=== PATIENT | male | born 1980 | race Caucasian/White ===

== ENCOUNTER 2018-01-08 15:53 | Inpatient (IN) | payer OTHER ==
[2018-01-08 17:55] VITALS: BMI 34.7
--- NOTE | 2018-01-08 22:02 | HP ---
CIWA Score - CIWA Score Nausea/Vomitin Muscle Tremors: 2 Anxiety: 3 Agitation: 2 Paroxysmal Sweats: 2 Orientation: 0-Oriented Tacttile Disturbances: 2-Mild Itch/Numbness/Burn Auditory Disturbances: 2-Mild Harshness/Frighten Visual Disturbances: 2-Mild Sensitivity Headache: 2-Mild CIWA-Ar Total Score: 20 Admission ROS BHS - HPI Chief Complaint: DEPENDENT ON ETOH, COCAINE AND MARIJUANA Allergies/Adverse Reactions: Allergies Allergy/AdvReac Type Severity Reaction Status Date / Time No Known Allergies Allergy Verified 01/08/18 21:17 History of Present Illness: THE PT. IS REQUESTING ADMISSION TO THE DETOX UNIT AND CAME FOR H AND PE Exam Limitations: No Limitations - Ebola screening Have you traveled outside of the country in the last 21 days: No (N) Have you had contact with anyone from an Ebola affected area: No Have you been sick,other than usual withdrawal symptoms: No Do you have a fever: No - Review of Systems Constitutional: See HPI, Malaise, Weakness EENT: reports: See HPI Respiratory: reports: See HPI Cardiac: reports: Syncope GI: reports: See HPI, Nausea, Abdominal cramping : reports: No Symptoms Reported, See HPI Musculoskeletal: reports: See HPI, Muscle Pain, Muscle Weakness Integumentary: reports: See HPI, Flushing, Sweating Neuro: reports: See HPI, Headache, Tremors, Weakness Endocrine: reports: See HPI Hematology: reports: See HPI Psychiatric: reports: Judgement Intact, Orientated x3, Anxious, Depressed Patient History - Patient Medical History Hx Asthma: No Hx Chronic Obstructive Pulmonary Disease (COPD): No Hx Cardiac Disorders: No Hx Hypertension: Yes Hx Seizures: No Hx Diabetes: No Hx Gastrointestinal Disorders: Yes (ACID REFLUX) Hx Genitourinary Disorders: No Hx Sexually Transmitted Disorders: No Hx Renal Disease (ESRD): No Hx Human Immunodeficiency Virus (HIV): No Hx Hepatitis C: No Hx Depression: Yes (AND ANXIETY) Hx Suicide Attempt: Yes (X 1 - LAST NIGHT) Other Medical History: OBESITY - Patient Surgical History Past Surgical History: Yes Hx Orthopedic Surgery: Yes (RIGHT KNEE INJURY 01/2015) Anesthesia Reaction: No - PPD History Previous Implant?: Yes Documented Results: Negative w/o proof - Smoking Cessation Smoking history: Former smoker Have you smoked in the past 12 months: Yes Hx Chewing Tobacco Use: No Initiated information on smoking cessation: No 'Breaking Loose' booklet given: 01/08/18 - Substance & Tx. History Hx Alcohol Use: No Hx Substance Use: Yes Substance Use Type: Alcohol, Cocaine, Marijuana Hx Substance Use Treatment: No - Substances Abused Alcohol Route: Oral Frequency: Daily Amount used: BEER 1 OF 12 PACK, WHISKEY 8 OZ Age of first use: 14 Date of Last Use: 01/08/18 Marijuana/Hashish Route: Smoking Frequency: Daily Amount used: 1 GRAM Age of first use: 14 Date of Last Use: 01/07/18 Cocaine Route: Inhalation Frequency: 1-2 times per week Amount used: 1 GRAM Age of first use: 14 Date of Last Use: 01/07/18 Family Disease History - Family Disease History Family Disease History: Other: Brother (X 2 - ETOH DEPENDENTS) Admission Physical Exam S - Vital Signs Vital Signs: Vital Signs - 24 hr 01/08/18 17:53 Temperature 97.9 F Pulse Rate 84 Respiratory 18 Rate Blood Pressure 145/96 - Physical General Appearance: Yes: No Apparent Distress, Nourished, Appropriately Dressed , Obese, Tremorous, Sweating, Anxious HEENTM: Yes: Hearing grossly Normal, Normocephalic, Normal Voice, YOGESH, Pharynx Normal Respiratory: Yes: Chest Non-Tender, Lungs Clear, Normal Breath Sounds, No Respiratory Distress, No Accessory Muscle Use Neck: Yes: No masses,lesions,Nodules, Supple, Trachea in good position Breast: Yes: Axillae without masses Cardiology: Yes: Regular Rhythm, S1, S2, Tachycardia Abdominal: Yes: Normal Bowel Sounds, Non Tender, Soft, Protuberent, Distended Back: Yes: Normal Inspection Musculoskeletal: Yes: full range of Motion, Gait Steady, Pelvis Stable, Muscle Pain, Muscle weakness Extremities: Yes: Normal Capillary Refill, Normal Range of Motion, Non-Tender, Tremors Neurological: Yes: lumber planer II-XII NML intact, Fully Oriented, Alert, Motor Strength 5/5, Normal Response, Depressed Affect Integumentary: Yes: Warm, Moist Lymphatic: Yes: Within Normal Limits - Diagnostic (1) EtOH dependence Current Visit: Yes Status: Chronic Qualifiers: Substance use status: uncomplicated Qualified Code(s): F10.20 - Alcohol dependence, uncomplicated (2) Cocaine dependence Current Visit: Yes Status: Chronic (3) Marijuana dependence Current Visit: Yes Status: Chronic (4) Obese Current Visit: Yes Status: Chronic Qualifiers: Obesity classification: unspecified obesity classification (5) Anxiety and depression Current Visit: Yes Status: Chronic (6) HTN (hypertension) Current Visit: Yes Status: Acute (7) GERD (gastroesophageal reflux disease) Current Visit: Yes Status: Acute Cleared for Admission S - Detox or Rehab [facility] Level of Care: Medically Managed Detox Regimen/Protocol: Librium S Breath Alcohol Content Breath Alcohol Content: 0 Urine Drug Screen - Results Drug Screen Negative: No Urine Drug Screen Results: THC-Marijuana, TOMAS-Cocaine, BZO-Benzodiazepines
[2018-01-08] MEDS ORDERED: MENTHOL/PHENOL 1 EACH UD MM PRN (22:14)
[2018-01-08] MEDS ORDERED: LOPERAMIDE HCL 2 MG CAPSULE PO PRN (22:14)
[2018-01-08] MEDS ORDERED: ACETAMINOPHEN 325 MG TABLET (FP) PO PRN (22:14)
[2018-01-08] MEDS ORDERED: P-EPHED 60MG/TRIPROLIDI 2.5MG TABLET PO PRN (22:14)
[2018-01-08] MEDS ORDERED: MAGNESIUM CITRATE 300 ML BOTTLE PO PRN (22:14)
[2018-01-08] MEDS ORDERED: MAG HYDROX/AL HYDROX/SIMETH 30 ML UNIT-DOSE CUP PO PRN (22:14)
[2018-01-08] MEDS ORDERED: guaiFENesin/D-METHORPHAN HB 10 ML UNIT-DOSE CUPS PO PRN (22:14)
[2018-01-08] MEDS ORDERED: MAGNESIUM HYDROX 2400MG/30ML ORAL SUSPENSION 30 ML CUP PO PRN (22:14)
[2018-01-08] MEDS ORDERED: chlordiazePOXIDE HCL 25 MG CAPSULE PO PRN (22:14)
[2018-01-08] MEDS: chlordiazePOXIDE HCL 25 MG CAPSULE PO SCH (22:42)
[2018-01-08] MEDS: MELATONIN 5 MG TABLETS PO PRN (22:44)
[2018-01-09] MEDS: chlordiazePOXIDE HCL 25 MG CAPSULE PO SCH ×4 (05:30→22:27)
[2018-01-09] MEDS: PRENATAL VITAMINS W/ FOLIC ACID TABLET (FP) PO SCH (10:13)
[2018-01-09 10:30] LABS: HEMATOCRIT 42.3 % (35.4-49); HEMOGLOBIN 14.2 GM/dL (11.7-16.9); MCH 31.1 pg (25.7-33.7); MCHC 33.7 g/dl (32.0-35.9); MEAN CELL VOLUME 92.3 fl (80-96); MEAN PLT VOLUME 8.9 fl (7.5-11.1); PLATELET COUNT 181 K/MM3 (134-434); RBC 4.58 M/mm3 (4.00-5.60); RDW 13.7 % (11.9-15.9); WHITE BLOOD COUNT 4.6 K/mm3 (4.0-10.0)
[2018-01-09 10:39] LABS: ALBUMIN 3.5 g/dl (3.4-5.0); ANION GAP 7 (8-16); BLOOD UREA NITROGEN 24 mg/dL (7-18); CALCIUM 8.3 mg/dL (8.5-10.1); CHLORIDE 106 mmol/L (98-107); CO2 28 mmol/L (21-32); GLUCOSE,RANDOM 107 mg/dL (74-106); POTASSIUM 3.8 mmol/L (3.5-5.1); SODIUM 141 mmol/L (136-145)
[2018-01-09 10:43] LABS: ALK PHOS 88 U/L (45-117); BILIRUBIN,TOTAL 0.8 mg/dL (0.2-1.0); CREATININE 0.9 mg/dL (0.7-1.3); SGOT/AST 24 U/L (15-37); SGPT/ALT 50 U/L (12-78); TOT PROT 6.5 g/dl (6.4-8.2)
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
[2018-01-09 11:35] LABS: URINE APPEARANCE TURBID; URINE BILIRUBIN NEGATIVE (<2.0 mg/dL); URINE COLOR YELLOW; URINE GLUCOSE (UA) NEGATIVE (NEGATIVE); URINE KETONE TRACE (NEGATIVE); URINE LEUK ESTERASE NEGATIVE (NEGATIVE); URINE NITRITE NEGATIVE (NEGATIVE); URINE PROTEIN NEGATIVE (NEGATIVE); URINE UROBILINOGEN NEGATIVE mg/dL (0.2-1.0)
--- NOTE | 2018-01-09 16:52 | PN ---
S CIWA - CIWA Score Nausea/Vomitin Muscle Tremors: 4-Moderate,w/Arms Extend Anxiety: 3 Agitation: 3 Paroxysmal Sweats: 3 Orientation: 0-Oriented Tacttile Disturbances: 1-Very Mild Itch/Numbness Auditory Disturbances: 0-None Visual Disturbances: 0-None Headache: 1-Very Mild CIWA-Ar Total Score: 18 BHS Progress Note (SOAP) Subjective: Sweating, anxious, nausea Objective: 01/09/18 16:50 Last Vital Signs Temp Pulse Resp BP Pulse Ox 96.7 F L 84 18 121/83 01/09/18 13:34 01/09/18 13:34 01/09/18 13:34 01/09/18 13:34 Laboratory Tests 01/09/18 01/09/18 01/09/18 08:00 08:00 08:00 WBC 4.6 RBC 4.58 Hgb 14.2 Hct 42.3 MCV 92.3 MCH 31.1 MCHC 33.7 RDW 13.7 Plt Count 181 MPV 8.9 Sodium 141 Potassium 3.8 Chloride 106 Carbon Dioxide 28 Anion Gap 7 L BUN 24 H Creatinine 0.9 Creat Clearance w eGFR > 60 Random Glucose 107 H Calcium 8.3 L Total Bilirubin 0.8 AST 24 ALT 50 Alkaline Phosphatase 88 Total Protein 6.5 Albumin 3.5 Urine Color Urine Appearance Urine pH Ur Specific [place] Urine Protein Urine Glucose (UA) Urine Ketones Urine Blood Urine Nitrite Urine Bilirubin Urine Urobilinogen Ur Leukocyte Esterase RPR Titer HIV 1&2 Antibody Screen Negative HIV P24 Antigen Negative 01/09/18 01/09/18 08:00 09:20 WBC RBC Hgb Hct MCV MCH MCHC RDW Plt Count MPV Sodium Potassium Chloride Carbon Dioxide Anion Gap BUN Creatinine Creat Clearance w eGFR Random Glucose Calcium Total Bilirubin AST ALT Alkaline Phosphatase Total Protein Albumin Urine Color Yellow Urine Appearance Turbid Urine pH 5.0 Ur Specific [place] 1.024 Urine Protein Negative Urine Glucose (UA) Negative Urine Ketones Trace H Urine Blood Negative Urine Nitrite Negative Urine Bilirubin Negative Urine Urobilinogen Negative Ur Leukocyte Esterase Negative RPR Titer Nonreactive HIV 1&2 Antibody Screen HIV P24 Antigen Labs reviewed: bun 24 Assessment: 01/09/18 16:51 Withdrawal symptoms Noted with azotemia Plan: Continue detox Azotemia: encouraged PO hydration (water)
[2018-01-09] MEDS: hydrOXYzine PAMOATE 50 MG CAPSULE (FP) PO PRN (22:27)
[2018-01-09] MEDS: THIAMINE HCL 100 MG TABLET (FP) PO SCH (22:27)
[2018-01-09] MEDS: MELATONIN 5 MG TABLETS PO PRN (22:28)
[2018-01-10] MEDS: chlordiazePOXIDE HCL 25 MG CAPSULE PO SCH ×3 (05:34→16:45)
[2018-01-10] MEDS: PRENATAL VITAMINS W/ FOLIC ACID TABLET (FP) PO SCH (10:09)
--- NOTE | 2018-01-10 11:49 | PN ---
[facility] CIWA - CIWA Score Nausea/Vomitin-No Nausea/No Vomiting Muscle Tremors: 4-Moderate,w/Arms Extend Anxiety: 4-Mod. Anxious/Guarded Agitation: 3 Paroxysmal Sweats: 1-Minimal Palms Moist Orientation: 0-Oriented Tacttile Disturbances: 3-Moderate Itch/Numb/Burn Auditory Disturbances: 0-None Visual Disturbances: 0-None Headache: 0-None Present CIWA-Ar Total Score: 15 BHS Progress Note (SOAP) Subjective: ANXIETY,SWEATS,BACK ACHE. Objective: 01/10/18 11:48 Vital Signs 01/10/18 01/10/18 01/10/18 06:10 06:30 09:12 Temperature 96.1 F L 96.5 F L Pulse Rate 84 69 Respiratory 18 18 18 Rate Blood Pressure 133/87 114/79 Laboratory Tests 01/09/18 01/09/18 01/09/18 08:00 08:00 08:00 WBC 4.6 RBC 4.58 Hgb 14.2 Hct 42.3 MCV 92.3 MCH 31.1 MCHC 33.7 RDW 13.7 Plt Count 181 MPV 8.9 Sodium 141 Potassium 3.8 Chloride 106 Carbon Dioxide 28 Anion Gap 7 L BUN 24 H Creatinine 0.9 Creat Clearance w eGFR > 60 Random Glucose 107 H Calcium 8.3 L Total Bilirubin 0.8 AST 24 ALT 50 Alkaline Phosphatase 88 Total Protein 6.5 Albumin 3.5 Urine Color Urine Appearance Urine pH Ur Specific [place] Urine Protein Urine Glucose (UA) Urine Ketones Urine Blood Urine Nitrite Urine Bilirubin Urine Urobilinogen Ur Leukocyte Esterase RPR Titer HIV 1&2 Antibody Screen Negative HIV P24 Antigen Negative 01/09/18 01/09/18 08:00 09:20 WBC RBC Hgb Hct MCV MCH MCHC RDW Plt Count MPV Sodium Potassium Chloride Carbon Dioxide Anion Gap BUN Creatinine Creat Clearance w eGFR Random Glucose Calcium Total Bilirubin AST ALT Alkaline Phosphatase Total Protein Albumin Urine Color Yellow Urine Appearance Turbid Urine pH 5.0 Ur Specific [place] 1.024 Urine Protein Negative Urine Glucose (UA) Negative Urine Ketones Trace H Urine Blood Negative Urine Nitrite Negative Urine Bilirubin Negative Urine Urobilinogen Negative Ur Leukocyte Esterase Negative RPR Titer Nonreactive HIV 1&2 Antibody Screen HIV P24 Antigen Assessment: 01/10/18 11:48 WITHDRAWAL SX Plan: CONTINUE DETOX MOTRIN PRN DIRECTED.
--- NOTE | 2018-01-10 12:46 | PN ---
[facility] Progress Note Note: Psychiatry Attending's note : Called for medications orders. Patient requests seroquel at bedtime. Seen by psychiatrist, Dr Perkins on 01/09/18. Dr Perkins 's consult note : read and appreciated. Treatment plan includes seroquel 100 mg po hs. Intervention : Patient is informed of side effects/benefits of seroquel. Seroquel 100 mg po hs.Ordered at patient's request. Will monitor daily course of this plan of care.
[2018-01-10] MEDS: IBUPROFEN 400 MG TABLET (FP) PO PRN (16:43)
[2018-01-10] MEDS: THIAMINE HCL 100 MG TABLET (FP) PO SCH (22:21)
[2018-01-10] MEDS: chlordiazePOXIDE 5 MG CAPSULE PO SCH (22:21)
[2018-01-10] MEDS: QUEtiapine FUMARATE 100 MG TABLET (FP) PO SCH (22:22)
[2018-01-10] MEDS: MELATONIN 5 MG TABLETS PO PRN (22:23)
--- NOTE | 2018-01-11 00:50 | EKG ---
Test Reason : Blood Pressure : / mmHG Vent. Rate : 080 BPM Atrial Rate : 080 BPM P-R Int : 174 ms QRS Dur : 102 ms QT Int : 392 ms P-R-T Axes : 058 053 022 degrees QTc Int : 452 ms NORMAL SINUS RHYTHM NORMAL ECG NO PREVIOUS ECGS AVAILABLE Confirmed by MONA SHER MD ([id number]) on 01/11/2018 12:50:17 AM Referred By: Confirmed By:MONA SHER MD
[2018-01-11] MEDS: chlordiazePOXIDE 5 MG CAPSULE PO SCH ×3 (06:01→17:01)
[2018-01-11] MEDS: IBUPROFEN 400 MG TABLET (FP) PO PRN ×2 (06:59→19:38)
[2018-01-11] MEDS: hydrOXYzine PAMOATE 50 MG CAPSULE (FP) PO PRN ×3 (09:20→19:38)
[2018-01-11] MEDS ORDERED: PANTOPRAZOLE 40 MG TABLET (FP) PO SCH (10:00)
[2018-01-11] MEDS: PRENATAL VITAMINS W/ FOLIC ACID TABLET (FP) PO SCH (10:39)
--- NOTE | 2018-01-11 12:06 | PN ---
BHS Progress Note (SOAP) Subjective: ANXIETY,SWEATS,IRRITABILITY, DYSPEPSIA. OOB AMBULATING WITH STEADY GAIT. ALERT O X 3. Objective: 01/11/18 12:06 Vital Signs 01/11/18 01/11/18 01/11/18 06:21 06:30 09:29 Temperature 96.3 F L 97.4 F L Pulse Rate 66 75 Respiratory 18 18 18 Rate Blood Pressure 90/65 127/80 Laboratory Tests 01/09/18 01/09/18 01/09/18 08:00 08:00 08:00 WBC 4.6 RBC 4.58 Hgb 14.2 Hct 42.3 MCV 92.3 MCH 31.1 MCHC 33.7 RDW 13.7 Plt Count 181 MPV 8.9 Sodium 141 Potassium 3.8 Chloride 106 Carbon Dioxide 28 Anion Gap 7 L BUN 24 H Creatinine 0.9 Creat Clearance w eGFR > 60 Random Glucose 107 H Calcium 8.3 L Total Bilirubin 0.8 AST 24 ALT 50 Alkaline Phosphatase 88 Total Protein 6.5 Albumin 3.5 Urine Color Urine Appearance Urine pH Ur Specific [place] Urine Protein Urine Glucose (UA) Urine Ketones Urine Blood Urine Nitrite Urine Bilirubin Urine Urobilinogen Ur Leukocyte Esterase RPR Titer HIV 1&2 Antibody Screen Negative HIV P24 Antigen Negative 01/09/18 01/09/18 08:00 09:20 WBC RBC Hgb Hct MCV MCH MCHC RDW Plt Count MPV Sodium Potassium Chloride Carbon Dioxide Anion Gap BUN Creatinine Creat Clearance w eGFR Random Glucose Calcium Total Bilirubin AST ALT Alkaline Phosphatase Total Protein Albumin Urine Color Yellow Urine Appearance Turbid Urine pH 5.0 Ur Specific [place] 1.024 Urine Protein Negative Urine Glucose (UA) Negative Urine Ketones Trace H Urine Blood Negative Urine Nitrite Negative Urine Bilirubin Negative Urine Urobilinogen Negative Ur Leukocyte Esterase Negative RPR Titer Nonreactive HIV 1&2 Antibody Screen HIV P24 Antigen Assessment: 01/11/18 12:06 WITHDRAWAL SX Plan: CONTINUE DETOX
[2018-01-11] MEDS ORDERED: COLLOIDAL OATMEAL 1 BAR EACH TP PRN (13:05)
[2018-01-11] MEDS: HYDROCORTISONE 1% TOPICAL CREAM 30 GM TUBE TP SCH ×2 (14:28→22:27)
[2018-01-11] MEDS: chlordiazePOXIDE HCL 10 MG CAPSULE PO SCH (22:28)
[2018-01-11] MEDS: THIAMINE HCL 100 MG TABLET (FP) PO SCH (22:28)
[2018-01-11] MEDS: QUEtiapine FUMARATE 100 MG TABLET (FP) PO SCH (22:28)
[2018-01-11] MEDS: MELATONIN 5 MG TABLETS PO PRN (22:34)
[2018-01-12] MEDS: chlordiazePOXIDE HCL 10 MG CAPSULE PO SCH (05:58)
[2018-01-12 06:48] VITALS: BP 127/84; PULSE 88; TEMP 96.1
--- NOTE | 2018-01-12 08:49 | PN ---
S Progress Note (SOAP) Subjective: DETOX COMPLETED. ALERT O X 3. PT STATES "I'M GOING HOME TODAY. AND I NEED TO FOLLOW UP WITH MY DOCTOR TODAY. I'LL FOLLOW UP AT [facility] TOMORROW WHEN MY BED WILL BE AVAILABLE". ALERT O X 3. NAD. PT REPORTS HE HAS PRIMARY CARE WITH DR NIETO AT [facility] IN [place], [place]. Objective: 01/12/18 08:48 Vital Signs 01/12/18 01/12/18 03:30 06:47 Temperature 96.1 F L Pulse Rate 88 Respiratory 18 20 Rate Blood Pressure 127/84 Laboratory Tests 01/09/18 01/09/18 01/09/18 08:00 08:00 08:00 WBC 4.6 RBC 4.58 Hgb 14.2 Hct 42.3 MCV 92.3 MCH 31.1 MCHC 33.7 RDW 13.7 Plt Count 181 MPV 8.9 Sodium 141 Potassium 3.8 Chloride 106 Carbon Dioxide 28 Anion Gap 7 L BUN 24 H Creatinine 0.9 Creat Clearance w eGFR > 60 Random Glucose 107 H Calcium 8.3 L Total Bilirubin 0.8 AST 24 ALT 50 Alkaline Phosphatase 88 Total Protein 6.5 Albumin 3.5 Urine Color Urine Appearance Urine pH Ur Specific [place] Urine Protein Urine Glucose (UA) Urine Ketones Urine Blood Urine Nitrite Urine Bilirubin Urine Urobilinogen Ur Leukocyte Esterase RPR Titer HIV 1&2 Antibody Screen Negative HIV P24 Antigen Negative 01/09/18 01/09/18 08:00 09:20 WBC RBC Hgb Hct MCV MCH MCHC RDW Plt Count MPV Sodium Potassium Chloride Carbon Dioxide Anion Gap BUN Creatinine Creat Clearance w eGFR Random Glucose Calcium Total Bilirubin AST ALT Alkaline Phosphatase Total Protein Albumin Urine Color Yellow Urine Appearance Turbid Urine pH 5.0 Ur Specific [place] 1.024 Urine Protein Negative Urine Glucose (UA) Negative Urine Ketones Trace H Urine Blood Negative Urine Nitrite Negative Urine Bilirubin Negative Urine Urobilinogen Negative Ur Leukocyte Esterase Negative RPR Titer Nonreactive HIV 1&2 Antibody Screen HIV P24 Antigen Assessment: 01/12/18 08:48 MEDICALLY STABLE Plan: D/C PT TODAY. F/U WITH AFTERCARE TOMORROW.
--- NOTE | 2018-01-12 08:53 | DS ---
[facility] Detox Discharge Summary Admission Date: 01/08/18 Discharge Date: 01/12/18 - History Present History: Alcohol Dependence Additional Comments: DETOX COMPLETED. ALERT O X 3. NAD. FOLLOW UP WITH MEDICAL MANAGEMENT WITH DR NIETO AT [place], [place] NEEDED. Pertinent Past History: PLEASE SEE DX BELOW - Physical Exam Results Vital Signs: Vital Signs Temperature 96.1 F L 01/12/18 06:47 Pulse Rate 88 01/12/18 06:47 Respiratory Rate 20 01/12/18 06:47 Blood Pressure 127/84 01/12/18 06:47 O2 Sat by Pulse Oximetry (%) - Treatment Hospital Course: Detox Protocol Followed, Detoxed Safely, Responded well, Discharged Condition Good, Rehab Referral Accepted Patient has Accepted a Rehab Referral to: [facility] - Medication Discharge Medications: Ambulatory Orders Diazepam [Valium] 5 mg PO Q8H 01/08/18 Omeprazole Magnesium [Prilosec Otc] 20 mg PO DAILY 01/08/18 Zolpidem Tartrate [Ambien] 10 mg PO HS 01/08/18 Quetiapine Fumarate [Seroquel] 100 mg PO HS 30 Days #30 tablet NS MDD 100 mg - Diagnosis (1) Alcohol dependence with withdrawal, uncomplicated Current Visit: Yes Status: Acute (2) Cocaine dependence Current Visit: Yes Status: Acute Qualifiers: Substance use status: uncomplicated Qualified Code(s): F14.20 - Cocaine dependence, uncomplicated (3) GERD (gastroesophageal reflux disease) Current Visit: Yes Status: Chronic Qualifiers: Esophagitis presence: esophagitis presence not specified Qualified Code(s) : K21.9 - Gastro-esophageal reflux disease without esophagitis (4) HTN (hypertension) Current Visit: Yes Status: Chronic Qualifiers: Hypertension type: essential hypertension Qualified Code(s): I10 - Essential (primary) hypertension (5) Obese Current Visit: Yes Status: Chronic Qualifiers: Obesity classification: unspecified obesity classification - AMA Did Patient Leave Against Medical Advice: No
== END 2018-01-12 08:56 | disposition home or self-care (01) | DRG 774 ==
LOC: YASAS 15:53 → Y3N 21:54
PROVIDERS: ADMIT Internal Medicine; ATTEND Internal Medicine
PROC: HZ2ZZZZ Detoxification Services for Substance Abuse Treatment (ICD-10-PCS; principal; 2018-01-08)
DX: F10.230 Alcohol dependence with withdrawal, uncomplicated (principal); F14.20 Cocaine dependence, uncomplicated; F12.20 Cannabis dependence, uncomplicated; F39 Unspecified mood [affective] disorder; F41.8 Other specified anxiety disorders; I10 Essential (primary) hypertension; K21.9 Gastro-esophageal reflux disease without esophagitis; R79.89 Other specified abnormal findings of blood chemistry; R00.0 Tachycardia, unspecified; E66.9 Obesity, unspecified; Z68.34 Body mass index [BMI] 34.0-34.9, adult; Z87.891 Personal history of nicotine dependence
CPT/HCPCS: 36415; 80053; 81003; 85027; 86593; 87389; 93005; 93010